=== PATIENT | female | born 1975 | race African-American/Black ===

== ENCOUNTER 2019-11-19 05:30 | Emergency (ER) | payer SELFPAY ==
[2019-11-19 06:03] LABS: Hematocrit 26.8 % (36.0-45.0); MPV 7.7 fL (7.6-11.3); RBC Red Blood Cell Count 4.22 M/uL (3.86-4.86)
[2019-11-19 06:04] LABS: Protime INR 0.99
[2019-11-19 06:20] LABS: ALT/SGPT 32 U/L (12-78); AST/SGOT 50 U/L (15-37); Albumin 3.2 g/dL (3.4-5.0); Alkaline Phosphatase 88 U/L (45-117); BUN Blood Urea Nitrogen 3 mg/dL (7-18); Bicarbonate 19 mmol/L (21-32); Bilirubin Direct < 0.1 mg/dL (0-0.2); Bilirubin Total 0.3 mg/dL (0.2-1.0); Glucose Level 83 mg/dL (74-106); Potassium 3.4 mmol/L (3.5-5.1); Protein, Total 7.9 g/dL (6.4-8.2); Sodium Level 139 mmol/L (136-145)
[2019-11-19] MEDS ORDERED: NA CHLORIDE 0.9% 1,000 ML ONE (06:24)
[2019-11-19] MEDS ORDERED: THIAMINE 200 MG/2 ML INJ ONE (06:35)
--- NOTE | 2019-11-19 06:57 | RAD REPORT ---
EXAM DESCRIPTION: CT - Head Brain Wo Cont - 11/19/2019 6:50 am CLINICAL HISTORY: MENTAL STATUS CHANGE, hypertension COMPARISON: None TECHNIQUE: Axial 5 mm thick images of the head were obtained without IV contrast. All CT scans are performed using dose optimization technique as appropriate and may include automated exposure control or mA/KV adjustment according to patient size. FINDINGS: No intracranial hemorrhage, mass, edema or shift of mid-line structures. No acute infarcti on changes seen. No abnormal extra-axial fluid collections. Ventricles are normal. Mastoid air cells and visualized portions of the paranasal sinuses are clear. No acute bony findings. IMPRESSION: Negative non-contrast CT head examination.
[2019-11-19 07:00] LABS: Barbiturates NEGATIVE (NEGATIVE); Benzodiazepines NEGATIVE (NEGATIVE); Cocaine POSITIVE (NEGATIVE); METHAMPHETAM NEGATIVE (NEGATIVE); Methadone NEGATIVE (NEGATIVE); Opiates NEGATIVE (NEGATIVE); Phencyclidine NEGATIVE (NEGATIVE); THC Cannibis NEGATIVE (NEGATIVE)
[2019-11-19] MEDS ORDERED: POTASSIUM 25 MEQ EFFERV TAB ONE (07:03)
[2019-11-19 07:06] LABS: Urine Blood NEGATIVE (NEG); Urine Glucose NEGATIVE (NEG); Urine Protein NEGATIVE (NEG)
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
--- NOTE | 2019-11-19 07:30 | EDPHYS ---
Physician Documentation [facility] [place], [place] Name: Sasha Hazel Age: 43 yrs Sex: Female : 1975 Arrival Date: 11/19/2019 Time: 05:31 Bed 4 Private MD: ED Physician Melvin Mata HPI: 11/18 06:25 This 43 yrs old Black Female presents to ER via EMS with complaints of Altered Mental jones Status. 06:25 The patient presents with confusion, trouble concentrating. Onset: The symptoms/episode jones began/occurred this morning. Possible causes: CVA or TIA, drug use, alcohol, low blood sugar. Associated signs and symptoms: The patient has no apparent associated signs or symptoms. Current symptoms: In the emergency department the patient's symptoms have improved, mildly. Patient's baseline: Neuro: alert and fully oriented. The patient has not experienced similar symptoms in the past. Historical: - Allergies: 05:30 No Known Allergies; rr5 - Home Meds: 05:30 Amitriptyline Oral [Active]; Prozac Oral [Active]; rr5 - PMHx: 05:30 ADD/ADHD; Depression; Hypertension; UTI; rr5 - Immunization history:: Adult Immunizations unknown. - Social history:: Smoking status: Patient reports the use of cigarette tobacco products, smokes one pack cigarettes per day. Patient uses alcohol, Patient/guardian denies using street drugs. - Family history:: not pertinent. ROS: 06:25 Constitutional: Negative for fever, chills, and weight loss, Eyes: Negative for injury, jones pain, redness, and discharge, ENT: Negative for injury, pain, and discharge, Neck: Negative for injury, pain, and swelling, Cardiovascular: Negative for chest pain, palpitations, and edema, Respiratory: Negative for shortness of breath, cough, wheezing, and pleuritic chest pain, Abdomen/GI: Negative for abdominal pain, nausea, vomiting, diarrhea, and constipation, Back: Negative for injury and pain, : Negative for injury, bleeding, discharge, and swelling, MS/Extremity: Negative for injury and deformity, Skin: Negative for injury, rash, and discoloration, Psych: Negative for depression, anxiety, suicide ideation, homicidal ideation, and hallucinations, Allergy/Immunology: Negative for hives, rash, and allergies, Endocrine: Negative for neck swelling, polydipsia, polyuria, polyphagia, and marked weight changes, Hematologic/Lymphatic: Negative for swollen nodes, abnormal bleeding, and unusual bruising. 06:25 Neuro: Positive for altered mental status, weakness. Exam: 06:25 Constitutional: This is a well developed, well nourished patient who is awake, alert, jones and in no acute distress. Head/Face: Normocephalic, atraumatic. Eyes: Pupils equal round and reactive to light, extra-ocular motions intact. Lids and lashes normal. Conjunctiva and sclera are non-icteric and not injected. Cornea within normal limits. Periorbital areas with no swelling, redness, or edema. ENT: Nares patent. No nasal discharge, no septal abnormalities noted. Tympanic membranes are normal and external auditory canals are clear. Oropharynx with no redness, swelling, or masses, exudates, or evidence of obstruction, uvula midline. Mucous membranes moist. Neck: Trachea midline, no thyromegaly or masses palpated, and no cervical lymphadenopathy. Supple, full range of motion without nuchal rigidity, or vertebral point tenderness. No Meningismus. Chest/axilla: Normal chest wall appearance and motion. Nontender with no deformity. No lesions are appreciated. Cardiovascular: Regular rate and rhythm with a normal S1 and S2. No gallops, murmurs, or rubs. Normal PMI, no JVD. No pulse deficits. Respiratory: Lungs have equal breath sounds bilaterally, clear to auscultation and percussion. No rales, rhonchi or wheezes noted. No increased work of breathing, no retractions or nasal flaring. Abdomen/GI: Soft, non-tender, with normal bowel sounds. No distension or tympany. No guarding or rebound. No evidence of tenderness throughout. Back: No spinal tenderness. No costovertebral tenderness. Full range of motion. Female : Normal external genitalia. Skin: Warm, dry with normal turgor. Normal color with no rashes, no lesions, and no evidence of cellulitis. MS/ Extremity: Pulses equal, no cyanosis. Neurovascular intact. Full, normal range of motion. Neuro: Awake and alert, GCS 15, oriented to person, place, time, and situation. Cranial nerves II-XII grossly intact. Motor strength 5/5 in all extremities. Sensory grossly intact. Cerebellar exam normal. Normal gait. Psych: Awake, alert, with orientation to person, place and time. Behavior, mood, and affect are within normal limits. 06:51 ECG was reviewed by the Attending Physician. [facility] Vital Signs: 05:30 BP 130 / 99; Pulse 95; Resp 18; Temp 98.4; Pulse Ox 99% ; Weight 72.57 kg; rr5 06:30 BP 141 / 85; Pulse 89; Resp 16; Pulse Ox 99% ; rr5 07:00 BP 128 / 83; Pulse 94; Resp 34; Pulse Ox 100% ; bp 07:58 BP 128 / 83; Pulse 97; Resp 26; Temp 98.0; Pulse Ox 97% on R/A; ph 10:00 BP 127 / 87; Pulse 93; Resp 16; Pulse Ox 97% ; bp 11:08 BP 133 / 90; Pulse 89; Resp 22; Pulse Ox 100% on R/A; ph Narciso Coma Score: 05:30 Eye Response: spontaneous(4). Verbal Response: confused(4). Motor Response: obeys rr5 commands(6). Total: 14. MDM: 06:09 Patient medically screened. [facility] 06:26 Data reviewed: vital signs, nurses notes, lab test result(s), EKG, radiologic studies, [facility] CT scan, plain films. 06:27 Differential Diagnosis: CVA, electrolyte abnormality, alcohol intoxication, [facility] hypoglycemia, intracranial bleed, overdose, seizure, TIA, UTI, volume depletion. Data interpreted: equipment monitor phototypesetting: rate is 95 beats/min, rhythm is normal sinus rhythm, Pulse oximetry: on room air is 99 %. Test interpretation: by ED physician or midlevel provider: ECG. Counseling: I had a detailed discussion with the patient and/or guardian regarding: the historical points, exam findings, and any diagnostic results supporting the discharge/admit diagnosis, the presence of at least one elevated blood pressure reading (>120/80) during this emergency department visit, lab results, radiology results. 06:53 ED course: pt admits to drinking, no drugs. alert and oriented x 3. [facility] 11/18 05:38 Order name: Acetaminophen [facility] 11/18 05:38 Order name: Basic Metabolic Panel [facility] 11/18 05:38 Order name: CBC with Diff [facility] 11/18 05:38 Order name: ETOH Level; Complete Time: 06:52 [facility] 11/18 05:38 Order name: Hepatic Function; Complete Time: 06:22 11/18 05:38 Order name: PT-INR; Complete Time: 06:14 11/18 05:38 Order name: Ptt, Activated; Complete Time: 06:14 11/18 05:38 Order name: Salicylate; Complete Time: 06:14 11/18 05:38 Order name: Urine Drug Screen; Complete Time: 07:28 11/18 05:40 Order name: Acetaminophen Level; Complete Time: 06:22 [facility] 11/18 05:40 Order name: Basic Metabolic Panel; Complete Time: 06:22 [facility] 11/18 06:36 Order name: Urine Dipstick--Ancillary (enter results); Complete Time: 07:28 11/18 06:36 Order name: Urine --Ancillary (enter results); Complete Time: 07:28 11/18 06:57 Order name: Urine Culture [facility] 11/18 05:38 Order name: EKG; Complete Time: 05:40 11/18 05:38 Order name: EKG - Nurse/Tech; Complete Time: 06:15 11/18 05:38 Order name: IV Saline Lock; Complete Time: 05:47 11/18 05:38 Order name: Labs collected and sent; Complete Time: 05:47 11/18 05:38 Order name: Urine Dipstick-Ancillary (obtain specimen); Complete Time: 06:32 11/18 06:25 Order name: CT Head Brain wo Cont; Complete Time: 07:28 [facility] 11/18 07:50 Order name: Manual Differential EDMS EC: Rate is 89 beats/min. Rhythm is regular. QRS [place] is Normal. MS interval is normal. QRS jones interval is normal. QT interval is normal. No Q waves. T waves are Normal. No ST changes noted. Clinical impression: Normal ECG and No evidence of ischemia. Interpreted by me. Reviewed by me. Administered Medications: Drug: NS 0.9% 1000 ml Route: IV; Rate: 1 bolus; Site: right forearm; rr5 11:22 Follow up: IV Status: Completed infusion; IV Intake: 100ml bp 06:31 Drug: Thiamine 100 mg Route: IV; Rate: per protocol; Site: right forearm; rr5 11:22 Follow up: IV Status: Completed infusion; IV Intake: 50ml bp 07:12 Drug: Potassium Effervescent Tablet 25 mEq Route: PO; rr5 11:22 Follow up: Response: No adverse reaction bp 07:58 Drug: Rocephin 1 grams Route: IV; Rate: per protocol; Site: right antecubital; ph 11:21 Follow up: IV Status: Completed infusion; IV Intake: 20ml bp Disposition: 11/19/19 07:29 Discharged to Home. Impression: Altered mental status, unspecified, Alcohol abuse with intoxication, Anemia, unspecified, Hypokalemia, Urinary tract infection, site not specified, Cocaine abuse. - Condition is Stable. - Discharge Instructions: Alcohol Intoxication, Iron Deficiency Anemia, Adult, Anemia, Nonspecific, Stimulant Use Disorder-Cocaine, Confusion, Urinary Tract Infection, Adult, Alcohol Intoxication, [id number], Urinary Tract Infection, Adult, [id number], Alcohol Abuse and Nutrition, Tobacco Use Disorder, Iron Deficiency Anemia, Adult, [id number], Hypokalemia. - Prescriptions for Vitamin 27- 0.8 mg Oral Tablet - take 1 tablet by ORAL route once daily; 30 tablet. Cipro 250 mg Oral Tablet - take 1 tablet by ORAL route every 12 hours; 14 tablet. - Medication Reconciliation Form, Thank You Letter, Antibiotic Education, Prescription Opioid Use form. - Follow up: Private Physician; When: 2 - 3 days; Reason: Recheck today's complaints, Continuance of care, Re-evaluation by your physician. - Problem is new. - Symptoms have improved. Signatures: Dispatcher [employer] EDMS Melvin Mata MD MD cha Hall, Patricia, RN RN Ren Morales RN RN Justin Pineda MD MD tw4 Syed Yin, RN RN rr5 Corrections: (The following items were deleted from the chart) 11:42 07:29 11/19/2019 07:29 Discharged to Home. Impression: Altered mental status, bp unspecified; Alcohol abuse with intoxication; Anemia, unspecified; Hypokalemia; Urinary tract infection, site not specified; Cocaine abuse. Condition is Stable. Discharge Instructions: Alcohol Intoxication, Iron Deficiency Anemia, Adult, Anemia, Nonspecific, Confusion, Alcohol Intoxication, [id number], Alcohol Abuse and Nutrition, Tobacco Use Disorder, Iron Deficiency Anemia, Adult, Amig-ks-Btzx, Hypokalemia, Urinary Tract Infection, Adult, Urinary Tract Infection, Adult, [id number]-mt-[id number]. Prescriptions for Vitamin 27-0.8 mg Oral Tablet - take 1 tablet by ORAL route once daily; 30 tablet, Cipro 250 mg Oral Tablet - take 1 tablet by ORAL route every 12 hours; 14 tablet. and Forms are Medication Reconciliation Form, Thank You Letter, Antibiotic Education, Prescription Opioid Use. Follow up: Private Physician; When: 2 - 3 days; Reason: Recheck today's complaints, Continuance of care, Re-evaluation by your physician. Problem is new. Symptoms have improved. jones
[2019-11-19 07:50] LABS: Platelet Estimate INCR
[2019-11-19 07:51] LABS: Anisocytosis 2+; Blood Morphology Comment NOTED (NOT SEEN); Hypochromasia 2+; Polychromasia 1+; Target Cells 2+
[2019-11-19] MEDS ORDERED: CEFTRIAXONE/SWI 1gm 1 GM/10 ML SYR ONE (07:59)
--- NOTE | 2019-11-19 18:15 | EKG ---
Test Date: 2019-11-19 Test Time: 06:00:34 Director Of Cardiology Service Line: BASIA MEASUREMENT RESULTS: Intervals: Rate: 89 HI: 128 QRSD: 74 QT: 384 QTc: 467 [place]: P: 36 HI: 128 QRS: 51 T: 43 INTERPRETIVE STATEMENTS: Normal sinus rhythm Normal ECG No previous ECG available for comparison Electronically Signed On 11-19-19 18:12:41 CDT by Alberto Gooden
== END 2019-11-19 11:42 | disposition home or self-care (01) ==
LOC: ER 05:30
DX: F10.129 Alcohol abuse with intoxication, unspecified (principal); F14.10 Cocaine abuse, uncomplicated; N39.0 Urinary tract infection, site not specified; D64.9 Anemia, unspecified; E87.6 Hypokalemia; I10 Essential (primary) hypertension; F32.9 Major depressive disorder, single episode, unspecified; F17.210 Nicotine dependence, cigarettes, uncomplicated
CPT/HCPCS: 36415; 70450; 80048; 80076; 80307; 80320; 80329; 81003; 81025; 85025; 85610; 85730; 93005; 96365; 96366; 96368; 99285; J0696; J3411; J7030